=== PATIENT | female | born 1960 | race Caucasian/White ===

== ENCOUNTER 2022-03-11 10:20 | Emergency (ER) | payer BC ==
[2022-03-11 13:16] LABS: ESTIMATED GFR 57 (>60)
[2022-03-11] MEDS ORDERED: Sodium Chloride 0.9% 10 ML Syringe FLUSH PRN (14:34)
[2022-03-11] MEDS ORDERED: Sodium Chloride 0.9% 1,000 ML IV SCH (14:45)
[2022-03-11] MEDS ORDERED: Sodium Chloride 0.9% 10 ML Syringe FLUSH ONE (14:48)
[2022-03-11] MEDS ORDERED: Iopamidol 612 MG/ML 100 ML Bottle IV SCH (15:00)
[2022-03-11] MEDS ORDERED: Sodium Chloride 0.9% 50 ML IV SCH (15:00)
== END 2022-03-11 16:05 | disposition home or self-care (01) ==
LOC: JP.ED 10:20
DX: K59.04 Chronic idiopathic constipation (principal)
CPT/HCPCS: 36415; 74177; 74177-26; 80053; 81001; 83605; 85025; 96360; 99283; 99284-25; J3490; J7030; Q9967